=== PATIENT | female | born 1975 | race Caucasian/White ===

== ENCOUNTER → 2023-10-18 08:44 | Outpatient (REF) | payer BC, SELFPAY | LOC: RAD 08:44 | PROVIDERS: ATTENDING PHYSICIAN Physician Assistant Medical | DX: R59.9 Enlarged lymph nodes, unspecified (principal) | CPT/HCPCS: 76536 ==

== ENCOUNTER 2024-10-16 09:38 | Emergency (ER) | payer OTHER, SELFPAY ==
[2024-10-16 09:47] VITALS: BP 148/83
--- NOTE | 2024-10-16 11:01 | ED.GENMED ---
History of Present Illness
General
Chief Complaint: Headache
Source: patient
Exam Limitations: none
Time Seen by Provider: 10/16/24 10:57
Nursing documentation reviewed up to this point in time: agreed with
History of Present Illness
History of Present Illness:
This a 49-year-old female with past medical history of migraines, hypertension, endometriosis, anxiety who presents emergency department today with concerns of a migraine for the past 5 days. Patient states that this feels like her typical
migraines however she has never had a migraine last this many days before. Patient is a former patient of Dr. Espinal and she changed insurance and so she currently does not have a neurologist and her migraines are managed by her primary care
provider. Patient reports that she takes topiramate daily to control her migraines and states that she uses Maxalt as her breakthrough/rescue medication. Patient was told that she cannot take more than 2 Maxalt per week. Patient is already maxed
out on her Maxalt and has been taking ibuprofen and Tylenol without relief. She also notes the pain wakes her up from sleep. She reports intermittent nausea but denies any vomiting denies any fevers or chills. She notes some mild neck pain. She
denies any head or neck trauma.
Past History
Past History
ED Past Medical History: Other (RA, lupus)
ED Past Surgical History: Other
Social History
Tobacco: Former smoker
Alcohol: Occasional
Drug: None
Personal:
Living: with family
Employment: Employed
Family History
Family History: Hypertension
Review of Systems
Review of Systems
All Other Systems: ROS reviewed and negative except as documented in HPI and ROS
Phy Exam
Physical Exam
Physical Exam:
General: Patient is well appearing and in no acute distress; non-toxic
Skin: Warm and dry, no rashes or lesions
Head: Normocephalic, atraumatic
Eyes: Sclera non-icteric. EOMs intact.
Cardiac: Regular rate and rhythm, no murmurs
Peripheral Vascular: No lower extremity swelling or edema
Pulm: Normal respiratory effort, no wheezes, rales, rhonchi
Musculoskeletal: No midline tenderness of the cervical spine
Neuro: CN II-XII intact, no focal neurologic deficits. No nuchal rigidity
Psychiatric: Appropriate mood and affect.
Course
Orders/Labs/Results
Orders:
Orders
10/16/24 11:10
CT Head W/o Iv Contrast Urgent
Comment:
Reason For Exam: daily headache >5 days, nausea
10/16/24 11:11
0.9% Sodium Chloride 1000 ml [Nss] 1,000 ml IV BOLUS
Diphenhydramine [Benadryl] 12.5 mg IV NOW STA
Metoclopramide [Reglan] 10 mg IV NOW STA
10/16/24 11:36
Complete Blood Count/With Diff Urgent
Comprehensive Metabolic Panel Urgent
10/16/24 11:57
Ketorolac [Toradol] 15 mg IV NOW STA
10/16/24 13:08
Dexamethasone Sod Phosphate [Decadron] 10 mg IV NOW STA
Abnormal Lab Results
10/16/24
11:36
WBC 2.1 L* 10^3/uL
(4.8-10.8)
MCH 31.9 H pg
(27.0-31.0)
Absolute Neuts (auto) 0.8 L* 10^3/uL
(1.4-6.5)
Absolute Lymphs (auto) 1.0 L 10^3/uL
(1.2-3.4)
Neutrophils % 36.0 L %
(42.2-75.2)
Monocytes % 14.5 H %
(1.7-9.3)
10/16/24 11:36
10/16/24 11:36
Vital Signs
Initial and Last Documented VS:
Initial Vital Signs
Temp Pulse Resp BP Pulse Ox
98.4 F 83 18 148/83 100
10/16/24 09:47 10/16/24 09:47 10/16/24 09:47 10/16/24 09:47 10/16/24 09:47
Last Documented Vital Signs
Temp Pulse Resp BP Pulse Ox
98.4 F 69 16 121/79 100
10/16/24 09:47 10/16/24 14:15 10/16/24 14:15 10/16/24 14:15 10/16/24 14:15
MDM/Problems Addressed
Differential Diagnosis Includes:
Differentials include migraine headache, tension headache, cluster headache, subarachnoid hemorrhage, space-occupying lesion
MDM/Problems Addressed:
49-year-old female presents emergency department today with concerns of migraine headache associated with nausea. This has been going on for past 5 days. Patient states that this is of the same character as her typical migraines however this is
never lasted this long and she is taken her home medications for migraines without relief. Considering length of migraines which is unusual for her, CT scan was obtained which was negative for any acute intracranial abnormality. Patient was
treated in the ER with Reglan, Toradol, and Benadryl notes a significant improvement in her symptoms. She also received IV fluids. Patient states that she does have a dull pain still, I did offer additional medication however patient would rather
rest at home and follow-up with her PCP and establish care with a new neurologist. Think this is reasonable, did give dose of Decadron considering the length of patient's headaches. Reviewed case with attending. Patient stable for discharge.
Chronic conditions affecting care:
Lupus--patient's white blood cell count today was noted to be low at 2.1. Patient states that she has a history of this and has extensive workup for this in the past and has had bone marrow biopsies and I determined that her white blood cell counts
are related to her autoimmune disease. Patient states that this level is around her baseline
*Critical Care Note
Total Time (30-74mins, 75-104mins- exclusive of procedures): Not Applicable
Data Reviewed
Review of Other/Old Records Reveals: Records (reviewed discharge summary and reviewed neurology progress note from 04/29/23) and Discharge Summary (She states that she had an atypical migraine is admitted to the hospital last year and they still an
area which may represented this for stroke on MRI and she was put on a short course of aspirin however is more likely that her symptoms were related to severe hypokalemia/compress migraine)
Source: patient and records
ED Attending Note
-
Portions of this chart may have been created with voice recognition software.� Occasional wrong word or��sound alike� substitutions may have occurred due to the inherent limitations of voice recognition software.
Discharge Plan
Departure
Patient Disposition: Home (Routine Discharge)
Date of Disposition: 10/16/24
Time of Disposition: 13:26
Patient with high blood pressure during this ER visit?: Yes
Condition: Good
Discharge Problem:
Migraine headache
Instructions: Migraines (DC), BLOOD PRESSURE
Prescriptions:
No Action
rizatriptan [Maxalt] 10 mg Tablet
10 mg PO DAILYPRN PRN (Reason: migraines)
therapeutic multivitamin Tablet
1 tab PO DAILY
amlodipine 5 mg Tablet
5 mg PO DAILY
tramadol 50 mg Tablet
50 mg PO Q6H PRN (Reason: mild pain)
Rx Instructions:
04/28/2023, patient filled this medication on 10/25/2022 for 120 tablets according to PDMP.
pramipexole 0.5 mg Tablet
0.5 mg PO HS
alprazolam 0.5 mg Tablet
0.5 - 1 mg PO Q8HPRN PRN (Reason: anxiety)
Rx Instructions:
04/28/2023, patient filled this medication on 02/20/2023 for 30 tablets according to PDMP.
ascorbic acid (vitamin C) [Vitamin C] 500 mg Tablet
500 mg PO DAILY
paroxetine HCl 20 mg Tablet
20 mg PO DAILY
ibuprofen 200 mg Tablet
400 mg PO Q8H PRN (Reason: mild pain)
oxycodone 5 mg Tablet
5 mg PO Q6H PRN (Reason: mild pain)
Rx Instructions:
04/28/2023, patient filled this medication on 04/14/2023 for 30 tablets according to PDMP.
bupropion HCl 300 mg Tablet Extended Release 24 Hr
300 mg PO DAILY
topiramate 50 mg Tablet
50 mg PO BID
fluoride (sodium) [Sodium Fluoride 5000 Dry Mouth] 1.1 % Paste
1 applic DENTAL HS
gabapentin 300 mg Tablet
150 mg PO HS
aspirin 81 mg Tablet,Delayed Release (Dr/Ec)
81 mg PO DAILY Qty: 30 1RF
potassium chloride 10 mEq capsule, extended release
10 meq PO DAILY Qty: 4 0RF
Referrals:
Sybil Burris PA-C [Family Provider] -
Activity Restrictions/Additional Instructions:
Please call [phone] to schedule appointment [address] Marrero, neurologist with [facility].
Please follow-up with your teacher private as scheduled. Your white blood cell count today was 2.1.
PLEASE RETURN TO EMERGENCY DEPARTMENT SHOULD YOU DEVELOP AN ACUTE WORSENING OF YOUR SYMPTOMS, LOSS OF VISION, WEAKNESS ON ONE SIDE BODY VERSUS OTHER, DIFFICULTY AMBULATING, INTRACTABLE NAUSEA OR VOMITING, FEVERS OR CHILLS, CHEST PAIN, SHORTNESS OF
BREATH, OR ANY OTHER SIGNS OR SYMPTOMS WORRISOME TO YOU.
Interventions
Interventions:
*Risk Screen - Suicide Last Done: 10/16/24 11:30
*General Assessment Last Done: 10/16/24 11:30
*Neglect/Abuse Screening Last Done: 10/16/24 11:30
*ED- Fall Risk Assessment Last Done: 10/16/24 11:30
*ED COVID-19 Vaccine History Last Done: 10/16/24 11:30
*Nursing Disposition Last Done: 10/16/24 14:19
ED- Neurological Assessment Last Done: 10/16/24 11:30
Discharge Date and Time
Discharge Date/Time: 10/16/24 14:19
Print Language: [place]
--- NOTE | 2024-10-16 11:04 | EDRN ---
Nimo Marino PA in to see pt at this time.
--- NOTE | 2024-10-16 11:16 | EDRN ---
Dr. Bolaños verbally informed about pt at this time. Charge nurse is arranging PCT one on one. I am now calling crisis to inform them about this patient.
[2024-10-16 11:30] VITALS: BMI 19.5
[2024-10-16] MEDS: NSS 1000 IV (11:35)
[2024-10-16] MEDS: BENADRYL 12.5 MG IV (11:41)
[2024-10-16] MEDS: REGLAN 10 MG IV (11:41)
[2024-10-16 11:59] LABS: ALT (SGPT) 14 U/L (0-35); AST (SGOT) 17 U/L (14-36); Alkaline Phosphatase 76 U/L (38-126); Blood Urea Nitrogen 12 mg/dl (7-17); Calcium 9.7 mg/dl (8.4-10.2); Carbon Dioxide 26 mmol/L (22-30); Chloride 104 mmol/L (98-107); Glucose 83 mg/dl (70-99); Potassium 4.3 mmol/L (3.5-5.1); Sodium 140 mmol/L (135-145); Total Bilirubin 0.6 mg/dl (0.2-1.3); Total Protein 7.8 g/dl (6.3-8.2); eGFR > 60.00
[2024-10-16] MEDS: TORADOL 15 MG IV (12:26)
[2024-10-16 12:30] VITALS: BP 119/70
--- NOTE | 2024-10-16 12:57 | EDRN ---
This RN TT'd Nimo [facility] about pt eating and drinking and message from [facility] was yes w/ pt informed. Spouse getting something for pt at this time.
--- NOTE | 2024-10-16 13:02 | EDRN ---
Nimo Ross PA in room w/ pt at this time.
--- NOTE | 2024-10-16 13:07 | EDRN ---
Lab called about CBC not resulted as of yet.
--- NOTE | 2024-10-16 13:10 | EDRN ---
Lab called and found blood tube and will be running it now for CBC.
[2024-10-16 13:15] LABS: Hematocrit 44.6 % (37.0-47.0); Hemoglobin 15.2 g/dL (12.0-16.0); Mean Corp Hgb Conc. 34.1 g/dL (33.0-37.0); Mean Corpuscular Hgb 31.9 pg (27.0-31.0); Mean Corpuscular Volume 93.7 fL (81.0-99.0); Platelet Count 192 10^3/uL (130-400); Red Blood Cell Count 4.76 10^6/uL (4.20-5.40); Red Cell Dist. Width 11.7 % (11.5-14.5); White Blood Cell Count 2.1 10^3/uL (4.8-10.8)
[2024-10-16] MEDS: DECADRON 10 MG IV (13:25)
[2024-10-16 14:12] LABS: % Basophils 0.9 % (0-2); % Eosinophils 0.9 % (0-6); % Immature Granulocytes 0.5 % (0-0.5); % Lymphocytes 47.2 % (20.5-51.1); % Monocytes 14.5 % (1.7-9.3); Absolute Monocytes 0.3 10^3/uL (0.1-0.6); Absolute Neutrophils 0.8 10^3/uL (1.4-6.5); Nucleated Red Blood Cells % 0 %
[2024-10-16 14:15] VITALS: BP 121/79
== END 2024-10-16 14:19 | disposition home or self-care (01) ==
LOC: EMR 09:38
PROVIDERS: Physician Assistant; EMERGENCY PHYSICIAN Emergency Medicine; FAMILY PHYSICIAN Physician Assistant Medical
DX: G43.909 Migraine, unspecified, not intractable, without status migrainosus (principal); I10 Essential (primary) hypertension; N80.9 Endometriosis, unspecified; F41.9 Anxiety disorder, unspecified; Z79.899 Other long term (current) drug therapy; Z82.49 Family history of ischemic heart disease and other diseases of the circulatory system; Z86.73 Personal history of transient ischemic attack (TIA), and cerebral infarction without residual deficits; Z87.891 Personal history of nicotine dependence
CPT/HCPCS: 99284; 96374; 96375; 96361; 70450; 80053; 85025